=== PATIENT | female | born 1980 | race African-American/Black ===

== ENCOUNTER 2016-06-19 15:57 | Emergency (ER) | payer SELFPAY ==
[~2016-06-19] VITALS: Ht 162.6 cm; Wt 60.0 kg
[~2016-06-19 15:57] MED LIST: NAPR550 PO; ROBA750T3 PO
[2016-06-19 16:10] VITALS: BP 128/63; PULSE 85; RESP 15; TEMP 97.8; O2SAT 97
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
--- NOTE | 2016-06-19 17:57 | PD ---
HPI Chief Complaint: Alcohol/Drug Intoxication Time Seen by Provider: 16:07 Travel History International Travel<30 days: No Contact w/Intl Traveler<30days: No Traveled to known affect area: No History of Present Illness HPI 35-year-old female was brought in by EMS for being found intoxicated. She is talking but with a heavy slur. Upon asking, she drank her apply was not enough. She told me that her right ankle was hurting. She has had previous surgery and there. She was mostly an unreliable historian given her intoxicated state. [facility] Past Medical History Narrative Medical List of her past medical, surgical, social and family history was reviewed from the nursing note. Asthma: Yes Cancer: No Cardiovascular Problems: No Diabetes: No Diminished Hearing: No Endocrine: No Genitourinary: No Hepatitis: No Hiatal Hernia: No Immune Disorder: No Musculoskeletal: No Neurologic: No Psychiatric: No Reproductive: No Respiratory: No Thyroid Disease: No Tetanus Vaccination: Unknown Influenza Vaccination: No ?: Unknown : 1 Para: 1 Miscarriage: 0 : 0 Past Surgical History Abdominal Surgery: No AICD: No Body Medical Devices: EXTERNAL FIXATOR RIGHT ANKLE, FOOT TIBIA Cardiac Surgery: No Ear Surgery: No Eye Surgery: No Genitourinary Surgery: No Gynecologic Surgery: No Joint Replacement: No Oral Surgery: No Pacemaker: No Thoracic Surgery: No Other Surgery: Yes Social History Alcohol Use: Yes (DAILY) Tobacco Use: Yes (1/2 ppd) Substance Use: Yes (MARIJUANA) Allergies-Medications (Allergen,Severity, Reaction): Coded Allergies: No Known Allergies (Verified , 03/09/14) Comments No known drug allergies. Reported Meds & Prescriptions Reported Meds & Active Scripts Active No Active Prescriptions or Reported Medications Narrative Medication List of her home medications reviewed from the nursing note. Review of Systems Except as stated in HPI: all other systems reviewed are Neg Physical Exam Narrative GENERAL: Alcohol intoxication SKIN: Focused skin assessment warm/dry. HEAD: Atraumatic. Normocephalic. EYES: Pupils equal and round. No scleral icterus. No injection or drainage. ENT: No nasal bleeding or discharge. Mucous membranes pink and moist. NECK: Trachea midline. No JVD. CARDIOVASCULAR: Regular rate and rhythm. No murmur appreciated. RESPIRATORY: No accessory muscle use. Clear to auscultation. Breath sounds equal bilaterally. GASTROINTESTINAL: Abdomen soft, non-tender, nondistended. Hepatic and splenic margins not palpable. MUSCULOSKELETAL: No obvious deformities. No clubbing. No cyanosis. No edema. NEUROLOGICAL: Alcohol intoxication. GCS of 14. No obvious cranial nerve deficits. Motor grossly within normal limits. Slurred speech. PSYCHIATRIC: Appropriate mood and affect; insight and judgment normal. Data Data Last Documented VS Vital Signs Date Time Temp Pulse Resp B/P Pulse Ox O2 Delivery O2 Flow Rate FiO2 06/19/16 21:18 78 18 127/68 100 06/19/16 16:15 Room Air 06/19/16 16:10 97.8 Orders Ankle, Complete ([id number]) (06/19/16 ) [facility] Medical Decision Making Medical Screen Exam Complete: Yes Emergency Medical Condition: Yes Medical Record Reviewed: Yes Differential Diagnosis Alcohol dependence, acute alcohol intoxication Narrative Course 5:56 PM x-ray of the right ankle not show any fracture. I've medically cleared her. She could be discharged once she is clinically sober. Procedures EKG Prior to Arrival: No Diagnosis Primary Impression: Acute alcohol intoxication Qualified Code: F10.129 - Acute alcohol intoxication, with unspecified complication Additional Impression: Ankle pain, right Qualified Code: M25.571 - Right ankle pain, unspecified chronicity Referrals: Primary Care Physician Additional Instructions: Please drink alcohol in moderation. Follow up with your primary care. Scripts No Active Prescriptions or Reported Meds Disposition: 01 DISCHARGE HOME Condition: Stable Roman Castro MD Jun 19, 2016 17:57
[2016-06-19 21:18] VITALS: BP 127/68
== END 2016-06-19 21:19 | disposition home or self-care (01) ==
LOC: NEPE 15:57
DX: F10.129 Alcohol abuse with intoxication, unspecified (principal); M25.571 Pain in right ankle and joints of right foot
CPT/HCPCS: 73610; 99284

== ENCOUNTER 2016-07-30 17:22 | Emergency (ER) | payer SELFPAY ==
[~2016-07-30] VITALS: Ht 165.1 cm; Wt 55.0 kg
[2016-07-30 17:33] VITALS: BP 121/56; PULSE 94; RESP 20; TEMP 99.9; O2SAT 95
--- NOTE | 2016-07-30 17:37 | PD ---
HPI Chief Complaint: alcohol intoxication Time Seen by Provider: 17:32 Travel History International Travel<30 days: No Contact w/Intl Traveler<30days: No Traveled to known affect area: No History of Present Illness HPI The patient is a 35-year-old [place] female who presents emergency department via EMS after being found intoxicated. According to EMS the patient missed a drinking alcohol earlier today, as well as drink and marijuana. The patient states she drinks "all day and every day ". The patient states she started with Cognac this morning and then drank "high gravity ". She also admits to smoking marijuana. She denies any current physical complaints including chest pain, shortness breath, nausea, vomiting, or abdominal pain. PFSH Past Medical History Asthma: Yes Cancer: No Cardiovascular Problems: No Diabetes: No Diminished Hearing: No Endocrine: No Genitourinary: No Hepatitis: No Hiatal Hernia: No Immune Disorder: No Musculoskeletal: No Neurologic: No Psychiatric: No Reproductive: No Respiratory: No Thyroid Disease: No : 1 Para: 1 Miscarriage: 0 : 0 Past Surgical History Abdominal Surgery: No AICD: No Body Medical Devices: EXTERNAL FIXATOR RIGHT ANKLE, FOOT TIBIA Cardiac Surgery: No Ear Surgery: No Eye Surgery: No Genitourinary Surgery: No Gynecologic Surgery: No Joint Replacement: No Oral Surgery: No Pacemaker: No Thoracic Surgery: No Other Surgery: Yes Social History Alcohol Use: Yes (DAILY) Tobacco Use: Yes (1/2 ppd) Substance Use: Yes (MARIJUANA) Allergies-Medications (Allergen,Severity, Reaction): Coded Allergies: No Known Allergies (Verified , 03/09/14) Reported Meds & Prescriptions Reported Meds & Active Scripts Active No Active Prescriptions or Reported Medications Review of Systems ROS Limitations: Intoxication, Altered Mental Status Except as stated in HPI: all other systems reviewed are Neg General / Constitutional: No: Fever Cardiovascular: No: Chest Pain or Discomfort Respiratory: No: Shortness of Breath Gastrointestinal: No: Nausea, Vomiting, Abdominal Pain Neurologic: Positive: Change in Mentation Psychiatric: Positive: Substance Abuse Physical Exam Exam Limitations: Intoxication Narrative GENERAL: Awake, alert, pleasant 35-year-old female who appears her stated age and is in no acute respiratory distress. Patient does appear intoxicated. SKIN: Focused skin assessment warm/dry. HEAD: Atraumatic. Normocephalic. EYES: Pupils equal and round. Pupils are 2 mm bilateral and reactive. Mild injection bilaterally. ENT: No nasal bleeding or discharge. Mucous membranes pink and moist. NECK: Trachea midline. No JVD. CARDIOVASCULAR: Regular rate and rhythm. No murmur appreciated. RESPIRATORY: No accessory muscle use. Clear to auscultation. Breath sounds equal bilaterally. GASTROINTESTINAL: Abdomen soft, non-tender, nondistended. No rebound tenderness. MUSCULOSKELETAL: No obvious deformities. No clubbing. No cyanosis. No edema. NEUROLOGICAL: Awake and alert. No obvious cranial nerve deficits. Motor grossly within normal limits. Slight slurring of speech. PSYCHIATRIC: Appears intoxicated. Data Data Last Documented VS Vital Signs Date Time Temp Pulse Resp B/P Pulse Ox O2 Delivery O2 Flow Rate FiO2 07/30/16 17:33 99.9 94 20 121/56 95 Orders Basic Metabolic Panel (Bmp) (07/30/16 17:33) Alcohol (Ethanol) (07/30/16 17:33) Drug Screen, Random Urine (07/30/16 17:33) Labs Laboratory Tests Test 07/30/16 18:11 Sodium Level 141 MEQ/L Potassium Level 3.7 MEQ/L Chloride Level 108 MEQ/L Carbon Dioxide Level 21.4 MEQ/L Anion Gap 12 MEQ/L Blood Urea Nitrogen 11 MG/DL Creatinine 0.60 MG/DL Estimat Glomerular Filtration 138 ML/MIN Rate Random Glucose 74 MG/DL Calcium Level 7.8 MG/DL Urine Opiates Screen NEG Urine Barbiturates Screen NEG Urine Amphetamines Screen NEG Urine Benzodiazepines Screen NEG Urine Cocaine Screen POS Urine Cannabinoids Screen POS Ethyl Alcohol Level 228 MG/DL MDM Medical Decision Making Medical Screen Exam Complete: Yes Emergency Medical Condition: Yes Medical Record Reviewed: Yes Interpretation(s) Laboratory Tests Test 07/30/16 18:11 Sodium Level 141 MEQ/L Potassium Level 3.7 MEQ/L Chloride Level 108 MEQ/L Carbon Dioxide Level 21.4 MEQ/L Anion Gap 12 MEQ/L Blood Urea Nitrogen 11 MG/DL Creatinine 0.60 MG/DL Estimat Glomerular Filtration 138 ML/MIN Rate Random Glucose 74 MG/DL Calcium Level 7.8 MG/DL Urine Opiates Screen NEG Urine Barbiturates Screen NEG Urine Amphetamines Screen NEG Urine Benzodiazepines Screen NEG Urine Cocaine Screen POS Urine Cannabinoids Screen POS Ethyl Alcohol Level 228 MG/DL Differential Diagnosis Differential diagnosis includes alcohol intoxication, polysubstance abuse, hyponatremia, intracranial hemorrhage, alcohol dependence, alcohol abuse. Narrative Course IV was established, labs were drawn and sent, and the patient was placed on cardiac telemetry monitoring and continuous pulse oximetry monitoring. Oxygen screen is positive for cocaine and cannabinoids, alcohol is 228. The patient will be allowed to sleep it off, when she is able to ambulate and has a safe disposition home, patient will be discharge. Diagnosis Primary Impression: Acute alcohol intoxication Qualified Code: F10.920 - Acute alcohol intoxication, uncomplicated Additional Impression: Polysubstance abuse Patient Instructions: General Instructions Additional Instructions: Stop using illicit drugs. Decrease alcohol intake. Follow-up with a primary physician. Scripts No Active Prescriptions or Reported Meds Disposition: DISCHARGE HOME Condition: Stable Ryne Vera MD July 30, 2016 17:37
[2016-07-30 18:55] LABS: AMPHETAMINE, URINE NEG (NEG); BARBITURATES, URINE NEG (NEG); COCAINE, URINE POS (NEG)
[2016-07-30 19:05] LABS: BICARBONATE 21.4 MEQ/L (21.0-32.0); POTASSIUM 3.7 MEQ/L (3.5-5.1)
[2016-07-30 19:42] VITALS: BP 121/56; PULSE 89; RESP 18; O2SAT 96
[2016-07-30 22:35] VITALS: BP 154/75
[2016-07-30 22:39] VITALS: BP 118/63
== END 2016-07-30 22:50 | disposition home or self-care (01) ==
LOC: NEPD 17:22
DX: F10.129 Alcohol abuse with intoxication, unspecified (principal); F19.10 Other psychoactive substance abuse, uncomplicated; F12.90 Cannabis use, unspecified, uncomplicated; F17.210 Nicotine dependence, cigarettes, uncomplicated; F14.90 Cocaine use, unspecified, uncomplicated; Y90.7 Blood alcohol level of 200-239 mg/100 ml
CPT/HCPCS: 80048; 80307; 99284

== ENCOUNTER 2016-09-01 20:17 | Emergency (ER) | payer SELFPAY ==
[~2016-09-01] VITALS: Ht 157.5 cm; Wt 48.0 kg
[2016-09-01 20:20] VITALS: BP 117/64; PULSE 86; RESP 18; TEMP 98.2; O2SAT 99
[2016-09-01] MEDS ORDERED: MORP1TAB25 PO (20:20)
[2016-09-01] MEDS ORDERED: ALPR.25 PO (20:25)
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
[2016-09-01 21:04] LABS: AUTOMATED NEUTROPHIL # 1.4 TH/MM3 (1.8-7.7); BASOPHIL # 0.1 TH/MM3 (0-0.2); BASOPHIL % 1.8 % (0.0-2.0); EOSINOPHIL % 0.6 % (0.0-4.0); HEMATOCRIT 27.3 % (35.0-46.0); LYMPH % 45.5 % (9.0-44.0); LYMPHOCYTE # 1.8 TH/MM3 (1.0-4.8); MEAN CORPUSCULAR HEMOGLOBIN 20.9 PG (27.0-34.0); MEAN CORPUSCULAR HGB CONC 30.2 % (32.0-36.0); MONO % 16.2 % (0.0-8.0); NEUT % 35.9 % (16.0-70.0); PLATELET COUNT 217 TH/MM3 (150-450); RED BLOOD COUNT 3.96 MIL/MM3 (4.00-5.30); RED CELL DISTRIBUTION WIDTH 18.4 % (11.6-17.2)
[2016-09-01 21:08] LABS: HEMO FLAGS AUTO DIFF
[2016-09-01 21:24] LABS: BICARBONATE 22.5 MEQ/L (21.0-32.0)
--- NOTE | 2016-09-01 21:29 | RADRPT ---
EXAM DATE/TIME: 09/01/2016 20:50 [facility] COMPARISON: CT BRAIN W/O CONTRAST, February 16, 2013, 14:28. INDICATIONS : Altered mental status,fell and hit back of head. RADIATION DOSE: 56.77 CTDIvol (mGy) MEDICAL HISTORY : None SURGICAL HISTORY : None. ENCOUNTER: Initial ACUITY: 1 day PAIN SCALE: 5/10 LOCATION: cranial TECHNIQUE: Multiple contiguous axial images were obtained of the head. Using automated exposure control and adj ustment of the mA and/or kV according to patient size, radiation dose was kept as low as reasonably a chievable to obtain optimal diagnostic quality images. FINDINGS: CEREBRUM: The ventricles are normal. No evidence of midline shift, mass lesion, hemorrhage or acute infarction . No extra-axial fluid collections are seen. POSTERIOR FOSSA: The cerebellum and brainstem demonstrate no abnormality. The 4th ventricle is midline. The cerebell opontine angle is unremarkable. EXTRACRANIAL: The visualized portion of the orbits is intact. SKULL: The calvaria is intact. No evidence of skull fracture. CONCLUSION: No acute finding is identified. Jesus Gomez MD on September 01, 2016 at 21:26 Board Certified Radiologist. This report was verified electronically.
[2016-09-01 21:40] LABS: SCAN/DIFF AUTO DIFF CONFIRMED
== END 2016-09-02 00:41 | disposition home or self-care (01) ==
LOC: NEPC 20:17
DX: F10.120 Alcohol abuse with intoxication, uncomplicated (principal); F19.10 Other psychoactive substance abuse, uncomplicated; R51 Headache; J45.909 Unspecified asthma, uncomplicated; D64.9 Anemia, unspecified; F17.210 Nicotine dependence, cigarettes, uncomplicated; Z79.899 Other long term (current) drug therapy
CPT/HCPCS: 70450; 80048; 80307; 85025; 99284

== ENCOUNTER 2016-10-03 11:20 | Emergency (ER) | payer SELFPAY ==
[~2016-10-03 11:20] MED LIST changes: +ALPR.25 PO; +MORP1TAB25 PO; -NAPR550 PO; -ROBA750T3 PO
[2016-10-03 11:24] VITALS: BP 123/70; PULSE 127; RESP 16; O2SAT 96
[2016-10-03] MEDS ORDERED: SODIUM CHLOR 0.9% 1000 ML INJ 1,000 ML IV SCH (11:30)
[2016-10-03] MEDS ORDERED: ONDANSETRON HCL 4 MG/2 ML VIAL IVP ONE (11:30)
[2016-10-03 12:01] LABS: AUTOMATED NEUTROPHIL # 1.8 TH/MM3 (1.8-7.7); BASOPHIL % 0.5 % (0.0-2.0); EOSINOPHIL % 0.1 % (0.0-4.0); HEMATOCRIT 32.5 % (35.0-46.0); HEMO FLAGS DIFF FINAL; LYMPH % 30.6 % (9.0-44.0); LYMPHOCYTE # 1.1 TH/MM3 (1.0-4.8); MEAN CELL VOLUME 71.5 FL (80.0-100.0); MEAN CORPUSCULAR HEMOGLOBIN 21.7 PG (27.0-34.0); MEAN CORPUSCULAR HGB CONC 30.3 % (32.0-36.0); MONO % 16.8 % (0.0-8.0); PLATELET COUNT 284 TH/MM3 (150-450); RED BLOOD COUNT 4.55 MIL/MM3 (4.00-5.30); RED CELL DISTRIBUTION WIDTH 18.3 % (11.6-17.2); WHITE BLOOD COUNT 3.5 TH/MM3 (4.0-11.0)
[2016-10-03 12:13] LABS: ANION GAP 11 MEQ/L (5-15); AST (GOT) 31 U/L (15-37); BICARBONATE 21.6 MEQ/L (21.0-32.0); BLOOD UREA NITROGEN 7 MG/DL (7-18); CHLORIDE 108 MEQ/L (98-107); GLOMERULAR FILTRATION RATE 104 ML/MIN (>89); POTASSIUM 3.3 MEQ/L (3.5-5.1); SODIUM (NA) 141 MEQ/L (136-145)
[2016-10-03 12:14] LABS: ALT (GPT) 31 U/L (10-53)
[2016-10-03 12:16] LABS: ALKALINE PHOSPHATASE 82 U/L (45-117); TOTAL BILIRUBIN ADULT 0.3 MG/DL (0.2-1.0)
--- NOTE | 2016-10-03 12:40 | PD ---
HPI Chief Complaint: Alcohol/Drug Intoxication Time Seen by Provider: 12:35 Travel History International Travel<30 days: No Contact w/Intl Traveler<30days: No Traveled to known affect area: No History of Present Illness HPI 35-year-old female that presents to the ED for evaluation of alcohol intoxication tachycardia. Patient apparently was found by a friend passed out on the floor. Patient denies any head injury or loss of consciousness. Per patient she did abuse cocaine as well as drank a lot of alcohol today. Per patient she rings alcohol almost every day. She does not do any IV drugs. Patient complains of pain to her left knee as well as her right ankle. She denies any signs of trauma. Per ambulance that brought her here and she was tachycardic in the 150s. She denies any other medical issues. She denies any chest pain or shortness of breath. No headache. No blurry vision or double vision. She does smell of alcohol and she does tell is what she took. She has no suicidal or homicidal ideation. Per patient she did this recreationally. She has a known history of alcohol abuse and has been here multiple times for same. Pain per patient is 4 out of 10. PFSH Past Medical History Asthma: Yes Cancer: No Cardiovascular Problems: No Diabetes: No Diminished Hearing: No Endocrine: No Genitourinary: No Hepatitis: No Hiatal Hernia: No Immune Disorder: No Musculoskeletal: No Neurologic: No Psychiatric: No Reproductive: No Respiratory: No Thyroid Disease: No ?: Not : 1 Para: 1 Miscarriage: 0 : 0 Past Surgical History Abdominal Surgery: No AICD: No Body Medical Devices: EXTERNAL FIXATOR RIGHT ANKLE, FOOT TIBIA Cardiac Surgery: No Ear Surgery: No Eye Surgery: No Genitourinary Surgery: No Gynecologic Surgery: No Joint Replacement: No Oral Surgery: No Pacemaker: No Thoracic Surgery: No Other Surgery: Yes Social History Alcohol Use: Yes (DAILY) Tobacco Use: Yes (1/2 ppd) Substance Use: Yes (MARIJUANA, crack, COCAINE) Allergies-Medications (Allergen,Severity, Reaction): Coded Allergies: No Known Allergies (Verified , 09/01/16) Reported Meds & Prescriptions Reported Meds & Active Scripts Active Reported Xanax (Alprazolam) 0.25 Mg Tab 0.25 Mg PO Q8H PRN Morphine ER (Morphine Sulfate) 30 Mg Tab 30 Mg PO DAILY Review of Systems ROS Limitations: Intoxication Except as stated in HPI: all other systems reviewed are Neg Physical Exam Exam Limitations: Intoxication Narrative GENERAL: SKIN: Warm and dry. HEAD: Atraumatic. Normocephalic. EYES: Pupils equal and round 4 mm reactive to light and accommodation. No scleral icterus. No injection or drainage. ENT: No nasal bleeding or discharge. Mucous membranes pink and moist. Tongue is midline. No uvula deviation. NECK: Trachea midline. No JVD. CARDIOVASCULAR: Regular rate and rhythm. No murmurs, S3, S4. RESPIRATORY: No accessory muscle use. Clear to auscultation. Breath sounds equal bilaterally. GASTROINTESTINAL: Abdomen soft, non-tender, nondistended. Hepatic and splenic margins not palpable. MUSCULOSKELETAL: Extremities without clubbing, cyanosis, or edema. No obvious deformities. Full range of motion of the upper and lower extremities bilaterally. 2+ pulses bilaterally. No lumbar, thoracic, cervical spine tenderness to palpation. Patient has full range of motion of the right ankle as well as the left knee. She does have some swelling noted on the left knee. NEUROLOGICAL: Awake and alert. No obvious cranial nerve deficits. Motor grossly within normal limits. Five out of 5 muscle strength in the arms and legs. Normal speech. PSYCHIATRIC: Intoxicated mood and affect; insight and judgment normal. Data Data Last Documented VS Vital Signs Date Time Temp Pulse Resp B/P Pulse Ox O2 Delivery O2 Flow Rate FiO2 10/03/16 13:13 86 97 Room Air 10/03/16 11:24 16 123/70 Orders Complete Blood Count With Diff (10/03/16 11:30) Comprehensive Metabolic Panel (10/03/16 11:30) Iv Access Insert/Monitor (10/03/16 11:30) Ecg Monitoring (10/03/16 11:30) Oximetry (10/03/16 11:30) Ondansetron Inj (Zofran Inj) (10/03/16 11:30) Sodium Chlor 0.9% 1000 Ml Inj (Ns 1000 M (10/03/16 11:30) Electrocardiogram (10/03/16 ) Alcohol (Ethanol) (10/03/16 11:30) Drug Screen, Random Urine (10/03/16 11:30) Ankle, Limited (Ap&Lat) (10/03/16 ) Knee, Ltd (1 Or 2vws) (10/03/16 ) Labs Laboratory Tests Test 10/03/16 11:35 White Blood Count 3.5 TH/MM3 Red Blood Count 4.55 MIL/MM3 Hemoglobin 9.8 GM/DL Hematocrit 32.5 % Mean Corpuscular Volume 71.5 FL Mean Corpuscular Hemoglobin 21.7 PG Mean Corpuscular Hemoglobin 30.3 % Concent Red Cell Distribution Width 18.3 % Platelet Count 284 TH/MM3 Mean Platelet Volume 7.2 FL Neutrophils (%) (Auto) 52.0 % Lymphocytes (%) (Auto) 30.6 % Monocytes (%) (Auto) 16.8 % Eosinophils (%) (Auto) 0.1 % Basophils (%) (Auto) 0.5 % Neutrophils # (Auto) 1.8 TH/MM3 Lymphocytes # (Auto) 1.1 TH/MM3 Monocytes # (Auto) 0.6 TH/MM3 Eosinophils # (Auto) 0.0 TH/MM3 Basophils # (Auto) 0.0 TH/MM3 CBC Comment DIFF FINAL Differential Comment Sodium Level 141 MEQ/L Potassium Level 3.3 MEQ/L Chloride Level 108 MEQ/L Carbon Dioxide Level 21.6 MEQ/L Anion Gap 11 MEQ/L Blood Urea Nitrogen 7 MG/DL Creatinine 0.77 MG/DL Estimat Glomerular Filtration 104 ML/MIN Rate Random Glucose 93 MG/DL Calcium Level 8.0 MG/DL Total Bilirubin 0.3 MG/DL Aspartate Amino Transf 31 U/L (AST/SGOT) Alanine Aminotransferase 31 U/L (ALT/SGPT) Alkaline Phosphatase 82 U/L Total Protein 7.2 GM/DL Albumin 3.3 GM/DL Ethyl Alcohol Level 253 MG/DL [facility] Medical Decision Making Medical Screen Exam Complete: Yes Emergency Medical Condition: Yes Medical Record Reviewed: Yes Interpretation(s) CBC & BMP Diagram 10/03/16 11:35 Alcohol the 200s Differential Diagnosis Alcohol intoxication versus polysubstance abuse versus tachycardia versus dehydration versus musculoskeletal injury Narrative Course 35-year-old female that presents to the ED for evaluation of alcohol intoxication and cocaine abuse. Patient was properly examined and was found to have signs and symptoms consistent appears with substance abuse. Sign of acute medical distress. Patient is able to answer questions appropriately. She does appear to be heavily intoxicated. She was found to be tachycardic by ambulance. Here she's been in the 110s. She will be given IV fluids and monitored until she is medically sober. X-rays were done and show no sign of bony injury. Patient was reassured. Patient will be allowed to sleep of her intoxication until sober enough to take care of self or if she has a responsible nonintoxicated adult come and pick her up. ED nurse aware of plan. HR last checked was 80s. No sign of acute distress. Diagnosis Primary Impression: Acute alcohol intoxication Qualified Code: F10.920 - Acute alcohol intoxication, uncomplicated Referrals: [facility] Patient Instructions: General Instructions Additional Instructions: Stop drinking alcohol. Follow with PCP. See ED for worsening symptoms. Follow with [facility] for alcohol abuse programs. Med/Other Pt SpecificInfo: No Change to Meds Disposition: 01 DISCHARGE HOME Condition: Stable Wilberto Parada Oct 03, 2016 12:40
--- NOTE | 2016-10-03 12:41 | RADRPT ---
EXAM DATE/TIME: 10/03/2016 12:15 [facility] COMPARISON: No previous studies available for comparison. INDICATIONS : Pain for greater than one year from being dependent leg. MEDICAL HISTORY : None. SURGICAL HISTORY : None. ENCOUNTER: Initial ACUITY: >1 year PAIN SCORE: 4/10 LOCATION: Left knee. FINDINGS: No definite fractures, or dislocations are identified. No definite lytic or sclerotic lesion is seen . The joint spaces are well maintained. CONCLUSION: Unremarkable study. Alfonso Root MD on October 03, 2016 at 12:39 Board Certified Radiologist. This report was verified electronically.
--- NOTE | 2016-10-03 12:43 | RADRPT ---
EXAM DATE/TIME: 10/03/2016 12:16 [facility] COMPARISON: ANKLE RIGHT COMPLETE ([id number]), February 16, 2013, 17:02. ANKLE RIGHT LIMITED (AP&LAT), February 16, 2013, 13:57. ANKLE RIGHT COMPLETE ([id number]), June 19, 2016, 16:48. INDICATIONS : Pain since surgical repair. MEDICAL HISTORY : Prior fracture. SURGICAL HISTORY : Prior surgical repair of fracture. ENCOUNTER: Subsequent ACUITY: >1 year PAIN SCORE: 5/10 LOCATION: Right ankle. FINDINGS: No definite fractures, or dislocations are identified. No definite lytic or sclerotic lesion is seen . Slight osteopenia is seen. Slight hypertrophic changes present involving the medial malleolus and lateral malleolus chronic in nature with some calcifications in the soft tissues adjacent to the medi al malleolus. CONCLUSION: Chronic changes and no evidence for acute fracture. Alfonso Root MD on October 03, 2016 at 12:40 Board Certified Radiologist. This report was verified electronically.
[2016-10-03 13:13] VITALS: PULSE 86; O2SAT 97
[2016-10-03 15:26] VITALS: BP 101/60; PULSE 71; RESP 14; O2SAT 99
--- NOTE | 2016-10-03 18:53 | EKG ---
Date Performed: 10/03/2016 Time Performed: 11:51:29 PTAGE: 35 years EKG: SINUS TACHYCARDIA POSSIBLE LEFT ATRIAL ENLARGEMENT ABNORMAL RHYTHM ECG NO PREVIOUS TRACING DOCTOR: Fausto Rosario Interpretating Date/Time 10/03/2016 18:52:49
== END 2016-10-03 15:46 | disposition home or self-care (01) ==
LOC: NEPC 11:20
DX: F10.920 Alcohol use, unspecified with intoxication, uncomplicated (principal); F14.10 Cocaine abuse, uncomplicated; R00.0 Tachycardia, unspecified
CPT/HCPCS: 73560; 73600; 80053; 80307; 85025; 93005; 96361; 96374; 99285; J2405; J7030

== ENCOUNTER 2017-01-28 16:06 | Emergency (ER) | payer SELFPAY ==
[~2017-01-28] VITALS: Ht 160 cm; Wt 55.0 kg
[2017-01-28 16:15] VITALS: BP 113/53; PULSE 90; RESP 16; TEMP 99.5; O2SAT 96
--- NOTE | 2017-01-28 16:38 | PD ---
HPI Chief Complaint: altered mental status, substance abuse. Time Seen by Provider: 16:20 Travel History International Travel<30 days: No Contact w/Intl Traveler<30days: No History of Present Illness HPI Patient is a 36-year-old female presents emergency department after being found unresponsive and she'll vomit outside a local convenience store. Apparently this convenience store is known for selling K2. Patient states she smoked marijuana today and had been drinking. She states she had "the real stuff". She is complains of left knee swollen and painful otherwise she has no complaints and states she is hungry. Denies chest pain shortness breath abdominal pain nausea vomiting. PFSH Past Medical History Asthma: Yes Cancer: No Cardiovascular Problems: No Diabetes: No Diminished Hearing: No Endocrine: No Genitourinary: No Hepatitis: No Hiatal Hernia: No Immune Disorder: No Musculoskeletal: No Neurologic: No Psychiatric: No Reproductive: No Respiratory: No Thyroid Disease: No : 1 Para: 1 Miscarriage: 0 : 0 Past Surgical History Abdominal Surgery: No AICD: No Body Medical Devices: EXTERNAL FIXATOR RIGHT ANKLE, FOOT TIBIA Cardiac Surgery: No Ear Surgery: No Eye Surgery: No Genitourinary Surgery: No Gynecologic Surgery: No Joint Replacement: No Oral Surgery: No Pacemaker: No Thoracic Surgery: No Other Surgery: Yes Social History Alcohol Use: Yes (DAILY) Tobacco Use: Yes (1/2 ppd) Substance Use: Yes (MARIJUANA, crack, COCAINE) Allergies-Medications (Allergen,Severity, Reaction): Coded Allergies: No Known Allergies (Verified Adverse Reaction, Unknown, 01/28/17) Reported Meds & Prescriptions Reported Meds & Active Scripts Active No Active Prescriptions or Reported Medications Review of Systems Except as stated in HPI: all other systems reviewed are Neg Physical Exam Narrative GENERAL: Well-developed well-nourished no obvious distress SKIN: Focused skin assessment warm/dry. HEAD: Atraumatic. Normocephalic. EYES: Pupils equal and round. No scleral icterus. No injection or drainage. ENT: No nasal bleeding or discharge. Mucous membranes pink and moist. NECK: Trachea midline. No JVD. CARDIOVASCULAR: Regular rate and rhythm. No murmur appreciated. RESPIRATORY: No accessory muscle use. Clear to auscultation. Breath sounds equal bilaterally. GASTROINTESTINAL: Abdomen soft, non-tender, nondistended. Hepatic and splenic margins not palpable. MUSCULOSKELETAL: No obvious deformities. No clubbing. No cyanosis. No edema. No obvious swelling to either knee, no bony tenderness to either knee. Full nontender range of motion. NEUROLOGICAL: Awake and alert. No obvious cranial nerve deficits. Motor grossly within normal limits. Normal speech. PSYCHIATRIC: Appropriate mood and affect; insight and judgment normal. Data Data Last Documented VS Vital Signs Date Time Temp Pulse Resp B/P (MAP) Pulse Ox O2 Delivery O2 Flow Rate FiO2 01/28/17 18:55 87 15 114/70 (85) 97 01/28/17 16:15 Room Air 01/28/17 16:15 99.5 Orders Orders Knee, Complete (4vws) (01/28/17 ) Ed Discharge Order (01/28/17 17:56) [facility] Medical Decision Making Medical Screen Exam Complete: Yes Emergency Medical Condition: Yes Differential Diagnosis Substance abuse, delirium, syncopal episode, knee pain. Narrative Course Patient arrived in the emergency department, followed shortly thereafter by her significant other, she states she is hungry and wants something eat. Her only complaint is of knee swelling. X-ray was obtained which shows no acute bony abnormality. She was able to ambulate in the emergency department. After. Of observation the emergency department she remained stable, no indication further workup at this time and she stable for disposition home. Discussed with her need follow-up with D[facility] arciniega refrain from using any illicit substances from the street. She stable for discharge. Diagnosis Primary Impression: Substance intoxication delirium Additional Impression: Substance abuse Scripts No Active Prescriptions or Reported Meds Disposition: 01 DISCHARGE HOME Condition: Stable Bobo Muro MD Jan 28, 2017 16:38
--- NOTE | 2017-01-28 17:53 | RADRPT ---
EXAM DATE/TIME: 01/28/2017 17:26 [facility] COMPARISON: ANKLE RIGHT LIMITED (AP&LAT), October 03, 2016, 12:16. INDICATIONS : Swelling. Left knee pain. MEDICAL HISTORY : None. SURGICAL HISTORY : None. ENCOUNTER: Initial ACUITY: 1 day PAIN SCORE: Non-responsive. LOCATION: Left knee FINDINGS: The examination demonstrates mild arthritic changes in the lateral compartment. There is a joint effu tj. No acute fracture or destructive lesion is seen. CONCLUSION: 1. Mild osteoarthritic changes in the lateral joint compartment with a small joint effusion. No acute fracture identified. Paul Taylor MD on January 28, 2017 at 17:51 Board Certified Radiologist. This report was verified electronically.
[2017-01-28 18:55] VITALS: BP 114/70
== END 2017-01-28 18:56 | disposition home or self-care (01) ==
LOC: NEPE 16:06
DX: F19.121 Other psychoactive substance abuse with intoxication delirium (principal); M25.462 Effusion, left knee
CPT/HCPCS: 73564; 99283

== ENCOUNTER 2017-02-09 14:35 | Emergency (ER) | payer SELFPAY ==
[2017-02-09 14:48] VITALS: BP 108/76; PULSE 99; RESP 24; TEMP 98.7; O2SAT 99
--- NOTE | 2017-02-09 15:33 | PD ---
HPI Chief Complaint: Alcohol/Drug Intoxication Time Seen by Provider: 15:30 Travel History International Travel<30 days: No Contact w/Intl Traveler<30days: No Traveled to known affect area: No History of Present Illness HPI 36 YO F with PMH of substance abuse, chronic alcoholism presents to the ED via EMS for evaluation [place] Per EMS report the patient roused easily to voice and light touch, has been oriented since. On presentation the patient endorses drinking "a lot" and smoking K2 today. She had one episode of emesis en route but states that this is now resolved. She denies suicidal ideation. She has no somatic complaints. She denies risk of . PFSH Past Medical History Asthma: Yes Cancer: No Cardiovascular Problems: No Diabetes: No Diminished Hearing: No Endocrine: No Genitourinary: No Hepatitis: No Hiatal Hernia: No Immune Disorder: No Musculoskeletal: No Neurologic: No Psychiatric: No Reproductive: No Respiratory: No Immunizations Current: Yes Thyroid Disease: No Tetanus Vaccination: Unknown ?: Unknown : 1 Para: 1 Miscarriage: 0 : 0 Past Surgical History Abdominal Surgery: No AICD: No Body Medical Devices: EXTERNAL FIXATOR RIGHT ANKLE, FOOT TIBIA Cardiac Surgery: No Ear Surgery: No Eye Surgery: No Genitourinary Surgery: No Gynecologic Surgery: No Joint Replacement: No Oral Surgery: No Pacemaker: No Thoracic Surgery: No Other Surgery: Yes Social History Alcohol Use: Yes (DAILY) Tobacco Use: Yes (1/2 ppd) Substance Use: Yes (MARIJUANA, COCAINE, K2(COKE AND K2 02/09)) Allergies-Medications (Allergen,Severity, Reaction): Coded Allergies: No Known Allergies (Verified Adverse Reaction, Unknown, 02/09/17) Reported Meds & Prescriptions Reported Meds & Active Scripts Active No Active Prescriptions or Reported Medications Review of Systems Except as stated in HPI: all other systems reviewed are Neg Physical Exam Narrative GENERAL: Well-nourished, well-developed alert, oriented female during open the stretcher, in no acute distress. SKIN: Focused skin assessment warm/dry. HEAD: Normocephalic. EYES: No scleral icterus. No injection or drainage. NECK: Supple, trachea midline. No JVD or lymphadenopathy. CARDIOVASCULAR: Regular rate and rhythm without murmurs, gallops, or rubs. RESPIRATORY: Breath sounds equal bilaterally. No accessory muscle use. GASTROINTESTINAL: Abdomen soft, non-tender, nondistended. MUSCULOSKELETAL: No cyanosis, or edema. Moves extremities spontaneously. BACK: Nontender without obvious deformity. No CVA tenderness. Data Data Last Documented VS Vital Signs Date Time Temp Pulse Resp B/P (MAP) Pulse Ox O2 Delivery O2 Flow Rate FiO2 02/09/17 14:48 98.7 99 24 108/76 (87) 99 Room Air MDM Medical Decision Making Medical Screen Exam Complete: Yes Emergency Medical Condition: Yes Differential Diagnosis Acute alcohol intoxication versus alcohol dependence versus polysubstance abuse versus other Narrative Course 36 YO F with PMH of substance abuse, chronic alcoholism presents to the ED via EMS for evaluation [place] Per EMS report the patient roused easily to voice and light touch, has been oriented since. On presentation the patient endorses drinking "a lot" and smoking K2 today. She had one episode of emesis en route but states that this is now resolved. She denies suicidal ideation. She has no somatic complaints. She denies risk of . Vitals reviewed. Physical exam is reassuring. Patient be monitored in the ED until she can demonstrate clinical sobriety, discharged for outpatient follow-up for her chronic substance abuse issues. Diagnosis Primary Impression: Polysubstance abuse Referrals: [facility] (Out patient) Additional Instructions: Seek outpatient treatment for your chronic substance abuse. Scripts No Active Prescriptions or Reported Meds Disposition: 01 DISCHARGE HOME Condition: Stable Megan Batres Feb 09, 2017 15:33
== END 2017-02-09 19:00 | disposition home or self-care (01) ==
LOC: NEDAMB 14:35
DX: F19.129 Other psychoactive substance abuse with intoxication, unspecified (principal); J45.909 Unspecified asthma, uncomplicated; F17.200 Nicotine dependence, unspecified, uncomplicated; F14.90 Cocaine use, unspecified, uncomplicated; F12.90 Cannabis use, unspecified, uncomplicated
CPT/HCPCS: 99283

== ENCOUNTER 2017-02-24 13:43 | Emergency (ER) | payer SELFPAY ==
[~2017-02-24] VITALS: Ht 162.6 cm; Wt 50.0 kg
[2017-02-24 13:58] VITALS: BP 112/58; PULSE 80; RESP 18; TEMP 99.3; O2SAT 100
[2017-02-24 14:02] VITALS: BP 112/58; PULSE 90; RESP 18; TEMP 99.3; O2SAT 100
[2017-02-24 14:25] LABS: AUTOMATED NEUTROPHIL # 2.3 TH/MM3 (1.8-7.7); BASOPHIL # 0.1 TH/MM3 (0-0.2); BASOPHIL % 1.7 % (0.0-2.0); EOSINOPHIL % 0.8 % (0.0-4.0); HEMOGLOBIN 8.9 GM/DL (11.6-15.3); LYMPH % 34.5 % (9.0-44.0); LYMPHOCYTE # 1.5 TH/MM3 (1.0-4.8); MEAN CELL VOLUME 77.3 FL (80.0-100.0); MEAN CORPUSCULAR HEMOGLOBIN 24.7 PG (27.0-34.0); MEAN CORPUSCULAR HGB CONC 31.9 % (32.0-36.0); MEAN PLATELET VOLUME 7.7 FL (7.0-11.0); MONO % 10.7 % (0.0-8.0); MONOCYTE # 0.5 TH/MM3 (0-0.9); NEUT % 52.3 % (16.0-70.0); PLATELET COUNT 180 TH/MM3 (150-450); RED BLOOD COUNT 3.62 MIL/MM3 (4.00-5.30); WHITE BLOOD COUNT 4.5 TH/MM3 (4.0-11.0)
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
[2017-02-24 14:46] LABS: BICARBONATE 23.5 MEQ/L (21.0-32.0); CALCIUM 8.2 MG/DL (8.5-10.1); CREATININE 0.79 MG/DL (0.50-1.00)
--- NOTE | 2017-02-24 15:42 | RADRPT ---
EXAM DATE/TIME: 02/24/2017 14:54 [facility] COMPARISON: ANKLE RIGHT COMPLETE ([id number]), June 19, 2016, 16:48. ANKLE RIGHT LIMITED (AP&LAT), October 03, 2016, 12:16. INDICATIONS : Right foot pain. MEDICAL HISTORY : None. SURGICAL HISTORY : None. ENCOUNTER: Initial ACUITY: 1 day PAIN SCORE: 4/10 LOCATION: Right Foot. FINDINGS: There is a well marginated 4 mm lucent lesion in the calcaneus with a sclerotic border and central ca lcified nidus. This lesion is unchanged from prior examinations. Osseous structures are intact withou t evidence for acute bony fracture. Redemonstration of chronic osseous changes. Joint spaces are main tained. Soft tissues are within normal limits. CONCLUSION: 1. Chronic osseous changes. 2. No acute fracture or subluxation. Luis Padgett MD on February 24, 2017 at 15:29 Board Certified Radiologist. This report was verified electronically.
--- NOTE | 2017-02-24 15:54 | RADRPT ---
EXAM DATE/TIME: 02/24/2017 14:52 [facility] COMPARISON: No previous studies available for comparison. INDICATIONS : Pelvis pain. MEDICAL HISTORY : None. SURGICAL HISTORY : None. ENCOUNTER: Initial ACUITY: 2 days PAIN SCORE: 4/10 LOCATION: Right Pelvis. FINDINGS: A single frontal view of the pelvis demonstrates no evidence of fracture. The bony pelvic ring is in tact. Bony mineralization is normal. The soft tissues are intact. CONCLUSION: No acute disease. Dayo Steward MD on February 24, 2017 at 15:51 Board Certified Radiologist. This report was verified electronically.
[2017-02-24] MEDS ORDERED: TRIAMCINOLONE ACETONIDE 0.1% CREAM 15 GM TOPICAL SCH (21:00)
[2017-02-25] MEDS ORDERED: CETIRIZINE HCL 10 MG TAB PO SCH (09:00)
== END 2017-02-24 17:32 | disposition home or self-care (01) ==
LOC: NEPC 13:43
DX: F19.94 Other psychoactive substance use, unspecified with psychoactive substance-induced mood disorder (principal); F17.200 Nicotine dependence, unspecified, uncomplicated; M79.671 Pain in right foot; M54.5 Low back pain
CPT/HCPCS: 72170; 73630; 80048; 80307; 85025; 99285